=== PATIENT | female | born 1985 | race Caucasian/White ===

== ENCOUNTER 2019-05-12 19:11 | Emergency (ER) | payer OTHER ==
[~2019-05-12] VITALS: Ht 157.5 cm; Wt 79.4 kg
--- OUTSIDE RECORDS SUMMARY | 2019-05-12 19:14 | XMS ---
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 Primary Care Current [place] PHONE: Unknown ELENITA MARTINS Primary Care Current SUN PHONE: [facility] Current Kitchen PHONE: [phone] Dario Davis - Case or It Administrator Current [employer] PHONE: [phone] Erich has no Care Guidelines for this patient. E.D. VISIT COUNT (12 MO.) 8 [facility] 3 [facility] 1 [facility] 1 [facility] 1 [facility] ED 1 ROSA UmanaZayra TOTAL 15 NOTE: Visits indicate total known visits. ED/UCC VISIT TRACKING (12 MO.) 05/12/2019 19:12 [facility] [employer] HZayra [place] TYPE: Emergency COMPLAINT: - SORE THROAT 04/18/2019 14:30 [facility] [place] TYPE: Emergency DIAGNOSES: - altered mental - Other stimulant abuse, uncomplicated 04/16/2019 02:18 [employer] [facility] [place] TYPE: Emergency DIAGNOSES: - Trichomoniasis, unspecified - KNEE PAIN - Contusion of right knee, initial encounter 04/12/2019 22:04 [employer] [facility]EN[place] TYPE: Emergency DIAGNOSES: - head injury 04/11/2019 02:23 [facility] [employer] ELENITA [place] TYPE: Emergency DIAGNOSES: - HEADACHE [facility]2019 [facility] DIAGNOSES: - Other stimulant abuse, uncomplicated - Brief psychotic disorder - Delusional disorders - Medical Clearance 04/03/2019 01:08 [facility] [place] TYPE: Emergency DIAGNOSES: - Other stimulant abuse, uncomplicated - Suicidal Thoughts - transitions request care - Suicidal ideations 03/18/2019 23:04 [facility] TYPE: Emergency DIAGNOSES: - Medical Clearance - Suicide Attempt - Brief psychotic disorder - Other stimulant abuse, uncomplicated 03[facility]18/2019 [facility] DIAGNOSES: - Pain in left foot - Other stimulant abuse, uncomplicated - Homelessness - Medical Clearance - Pain in right foot 03/17/2019 04:12 [facility] TYPE: Emergency DIAGNOSES: - Foot Swelling - Other stimulant abuse, uncomplicated - Pain in left foot - Pain in right foot - Psychiatric Evaluation 03/12/2019 11:23 [facility] [place] TYPE: Emergency DIAGNOSES: - Other stimulant abuse, uncomplicated - mental evaluation 03/11/2019 00:26 [facility] [place] TYPE: Emergency DIAGNOSES: - ARM PAIN AND BODY PAIN - Delusional disorders - Cough 02/05/2019 01:43 [facility] [place] TYPE: Emergency DIAGNOSES: - foot pain - Pain in right foot - Pain in left foot 01/03/2019 10:03 [facility] [place] TYPE: Emergency DIAGNOSES: - Other stimulant abuse, uncomplicated - abdominal pain - Generalized abdominal pain [facility]04[facility]2018 [facility] DIAGNOSES: - Acute tonsillitis, unspecified - Cough - Sore Throat - swollen throat INPATIENT VISIT TRACKING (12 MO.) No inpatient visits to display in this time frame [email or web address]
[2019-05-12] MEDS ORDERED: AMOXICILLIN500 MG PO (20:39)
== END 2019-05-12 20:54 | disposition home or self-care (01) ==
LOC: ED 19:11
DX: J02.0 Streptococcal pharyngitis (principal); F17.200 Nicotine dependence, unspecified, uncomplicated; Z88.2 Allergy status to sulfonamides
CPT/HCPCS: 99283

== ENCOUNTER 2023-07-02 09:31 | Emergency (ER) | payer MEDICAID ==
[~2023-07-02] VITALS: Ht 157.5 cm; Wt 64.4 kg
[~2023-07-02 09:31] MED LIST: AMOXICILLIN500 MG PO
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
[2023-07-02 10:49] VITALS: BP 155/92
== END 2023-07-02 10:35 | disposition home or self-care (01) ==
LOC: ED 09:31
DX: F11.10 Opioid abuse, uncomplicated (principal); F17.200 Nicotine dependence, unspecified, uncomplicated; I10 Essential (primary) hypertension; Z88.2 Allergy status to sulfonamides
CPT/HCPCS: 99283